=== PATIENT | male | born 1960 | race African-American/Black ===

== ENCOUNTER 2020-09-17 17:53 | Inpatient (IN) | payer OTHER ==
[2020-09-17 23:17] VITALS: BMI 23.8
[2020-09-18] MEDS ORDERED: NICOTINE POLACRILEX 2 MG GUM BUC PRN (00:39)
[2020-09-18] MEDS ORDERED: ONDANSETRON *ODT* 4 MG TABLET SL PRN (00:39)
[2020-09-18] MEDS ORDERED: MAGNESIUM HYDROX 2400MG/30ML ORAL SUSPENSION 30 ML CUP PO PRN (00:39)
[2020-09-18] MEDS ORDERED: NALOXONE (NARCAN) HCL 4 MG/0.1 ML SPRAY NS PRN (00:39)
[2020-09-18] MEDS ORDERED: IBUPROFEN 400 MG TABLET (FP) PO PRN (00:39)
[2020-09-18] MEDS ORDERED: methaDONE HCL 10 MG TABLET (FOR DETOX USE ONLY) PO ONE (00:39)
[2020-09-18] MEDS ORDERED: METHOCARBAMOL 500 MG TABLET PO PRN (00:39)
[2020-09-18] MEDS ORDERED: MENTHOL/PHENOL 1 EACH UD MM PRN (00:39)
[2020-09-18] MEDS ORDERED: MAGNESIUM CITRATE 300 ML BOTTLE PO PRN (00:39)
[2020-09-18] MEDS ORDERED: ACETAMINOPHEN 325 MG TABLET (FP) PO PRN ×2 (00:39)
[2020-09-18] MEDS ORDERED: MAG HYDROX/AL HYDROX/SIMETH 30 ML UNIT-DOSE CUP PO PRN (00:39)
[2020-09-18] MEDS ORDERED: BISMUTH SUBSALICYLATE 524 MG/30 ML PO PRN (00:39)
[2020-09-18] MEDS: hydrOXYzine PAMOATE 25 MG CAPSULE (FP) PO SCH ×5 (06:17→22:54)
[2020-09-18] MEDS: PRENATAL VITAMINS W/ FOLIC ACID TABLET (FP) PO SCH (10:36)
[2020-09-18] MEDS: amLODIPine BESYLATE 10 MG TABLET (FP) PO SCH (10:36)
[2020-09-18] MEDS: cloNIDine HCL 0.1 MG TABLET PO PRN ×2 (10:38→22:53)
[2020-09-18] MEDS: NICOTINE 14 MG/24 HOURS TOPICAL PATCH TD SCH (10:39)
[2020-09-18 12:45] LABS: HEMATOCRIT 37.5 % (35.4-49); MCH 31.1 pg (25.7-33.7); MCHC 34.7 g/dl (32.0-35.9); MEAN CELL VOLUME 89.5 fl (80-96); MEAN PLT VOLUME 10.4 fl (7.5-11.1); PLATELET COUNT 182 K/MM3 (134-434); RBC 4.19 M/mm3 (4.00-5.60); RDW 14.5 % (11.9-15.9); WHITE BLOOD COUNT 6.2 K/mm3 (4.0-10.0)
[2020-09-18 12:59] LABS: BLOOD UREA NITROGEN 21.8 mg/dL (7-18); CALCIUM 9.1 mg/dL (8.5-10.1)
[2020-09-18 13:00] LABS: ALBUMIN 3.4 g/dl (3.4-5.0)
[2020-09-18 13:03] LABS: CREATININE 0.8 mg/dL (0.55-1.3); TOT PROT 6.2 g/dl (6.4-8.2)
[2020-09-18] MEDS ORDERED: MASKS NR ONE (16:41)
[2020-09-18] MEDS: MELATONIN 5 MG TABLETS PO SCH (22:54)
[2020-09-18] MEDS: THIAMINE HCL 100 MG TABLET (FP) PO SCH (22:54)
[2020-09-19] MEDS: hydrOXYzine PAMOATE 25 MG CAPSULE (FP) PO SCH ×5 (06:42→22:59)
[2020-09-19] MEDS ORDERED: methaDONE HCL 10 MG TABLET (FOR DETOX USE ONLY) ONE (09:47)
[2020-09-19] MEDS: PRENATAL VITAMINS W/ FOLIC ACID TABLET (FP) PO SCH (10:39)
[2020-09-19] MEDS: amLODIPine BESYLATE 10 MG TABLET (FP) PO SCH (10:39)
[2020-09-19] MEDS: NICOTINE 14 MG/24 HOURS TOPICAL PATCH TD SCH (10:42)
[2020-09-19] MEDS: cloNIDine HCL 0.1 MG TABLET PO PRN (14:00)
[2020-09-19] MEDS ORDERED: LISINOPRIL 10 MG TABLET PO ONE (14:25)
[2020-09-19] MEDS: LISINOPRIL 10 MG TABLET PO SCH (22:59)
[2020-09-19] MEDS: THIAMINE HCL 100 MG TABLET (FP) PO SCH (22:59)
[2020-09-19] MEDS: MELATONIN 5 MG TABLETS PO SCH (22:59)
[2020-09-20] MEDS: hydrOXYzine PAMOATE 25 MG CAPSULE (FP) PO SCH ×5 (06:45→22:57)
[2020-09-20] MEDS ORDERED: methaDONE HCL 10 MG TABLET (FOR DETOX USE ONLY) PO ONE (10:00)
[2020-09-20] MEDS: PRENATAL VITAMINS W/ FOLIC ACID TABLET (FP) PO SCH (10:17)
[2020-09-20] MEDS: NICOTINE 14 MG/24 HOURS TOPICAL PATCH TD SCH (10:17)
[2020-09-20] MEDS: amLODIPine BESYLATE 10 MG TABLET (FP) PO SCH (10:17)
[2020-09-20] MEDS: LISINOPRIL 10 MG TABLET PO SCH ×2 (10:18→22:57)
[2020-09-20] MEDS: THIAMINE HCL 100 MG TABLET (FP) PO SCH (22:57)
[2020-09-20] MEDS: MELATONIN 5 MG TABLETS PO SCH (22:57)
[2020-09-21] MEDS: hydrOXYzine PAMOATE 25 MG CAPSULE (FP) PO SCH ×5 (05:54→22:45)
[2020-09-21] MEDS ORDERED: methaDONE HCL 10 MG TABLET (FOR DETOX USE ONLY) ONE (09:49)
[2020-09-21] MEDS: amLODIPine BESYLATE 10 MG TABLET (FP) PO SCH (10:29)
[2020-09-21] MEDS: NICOTINE 14 MG/24 HOURS TOPICAL PATCH TD SCH (10:29)
[2020-09-21] MEDS: PRENATAL VITAMINS W/ FOLIC ACID TABLET (FP) PO SCH (10:29)
[2020-09-21] MEDS: LISINOPRIL 10 MG TABLET PO SCH ×2 (10:29→22:45)
[2020-09-21] MEDS: MELATONIN 5 MG TABLETS PO SCH (22:45)
[2020-09-21] MEDS: THIAMINE HCL 100 MG TABLET (FP) PO SCH (22:45)
[2020-09-22] MEDS: hydrOXYzine PAMOATE 25 MG CAPSULE (FP) PO SCH ×5 (05:59→22:57)
[2020-09-22] MEDS ORDERED: JANSSEN COVID-19 VAC,AD26/PF 0.5 ML IM ONE (09:00)
[2020-09-22] MEDS ORDERED: methaDONE HCL 10 MG TABLET (FOR DETOX USE ONLY) PO ONE (10:00)
[2020-09-22] MEDS: LISINOPRIL 10 MG TABLET PO SCH ×2 (10:04→22:57)
[2020-09-22] MEDS: NICOTINE 14 MG/24 HOURS TOPICAL PATCH TD SCH (10:04)
[2020-09-22] MEDS: amLODIPine BESYLATE 10 MG TABLET (FP) PO SCH (10:04)
[2020-09-22] MEDS: PRENATAL VITAMINS W/ FOLIC ACID TABLET (FP) PO SCH (10:05)
[2020-09-22] MEDS: THIAMINE HCL 100 MG TABLET (FP) PO SCH (22:57)
[2020-09-22] MEDS: MELATONIN 5 MG TABLETS PO SCH (22:57)
[2020-09-23] MEDS: hydrOXYzine PAMOATE 25 MG CAPSULE (FP) PO SCH (07:05)
[2020-09-23 09:21] VITALS: BP 151/101; PULSE 79; TEMP 98.4
[2020-09-23] MEDS: amLODIPine BESYLATE 10 MG TABLET (FP) PO SCH (09:52)
[2020-09-23] MEDS: LISINOPRIL 10 MG TABLET PO SCH (09:52)
== END 2020-09-23 08:51 | disposition home or self-care (01) | DRG 897 ==
LOC: YASAS 17:53 → Y6N 23:28
PROVIDERS: ADMIT Allergy & Immunology; ATTEND Allergy & Immunology
PROC: HZ2ZZZZ Detoxification Services for Substance Abuse Treatment (ICD-10-PCS; principal; 2020-09-17)
DX: F11.23 Opioid dependence with withdrawal (principal); F14.20 Cocaine dependence, uncomplicated; F10.230 Alcohol dependence with withdrawal, uncomplicated; F19.24 Other psychoactive substance dependence with psychoactive substance-induced mood disorder; I10 Essential (primary) hypertension
CPT/HCPCS: 0031A; 36415; 80053; 85027; 86780; 91303; 93005; 93010; C9803; J0735; U0003; U0005

== ENCOUNTER 2023-07-25 16:02 | Inpatient (IN) | payer OTHER ==
[2023-07-25 17:03] VITALS: BMI 22.7
[2023-07-25] MEDS ORDERED: ONDANSETRON *ODT* 4 MG TABLET SL PRN (20:23)
[2023-07-25] MEDS ORDERED: NICOTINE POLACRILEX 2 MG GUM BUC PRN (20:23)
[2023-07-25] MEDS ORDERED: ACETAMINOPHEN 325 MG TABLET (FP) PO PRN (20:23)
[2023-07-25] MEDS ORDERED: LOPERAMIDE HCL 2 MG CAPSULE PO PRN (20:23)
[2023-07-25] MEDS ORDERED: guaiFENesin 600 MG TABLET.ER (FP) PO PRN (20:23)
[2023-07-25] MEDS ORDERED: MAG HYDROX/AL HYDROX/SIMETH 30 ML UNIT-DOSE CUP PO PRN (20:23)
[2023-07-25] MEDS ORDERED: POLYETHYLENE GLYCOL (HEALTHYLAX) 3350 17 GM PACKET PO PRN (20:23)
[2023-07-25] MEDS ORDERED: IBUPROFEN 400 MG TABLET (FP) PO PRN (20:23)
[2023-07-25] MEDS ORDERED: NALOXONE HCL (KLOXXADO) 8 MG SPRAY NS PRN (20:23)
[2023-07-25] MEDS ORDERED: BISMUTH SUBSALICYLATE 524 MG/30 ML PO PRN (20:23)
[2023-07-25] MEDS ORDERED: MAGNESIUM HYDROX 2400MG/30ML ORAL SUSPENSION 30 ML CUP PO PRN (20:23)
[2023-07-25] MEDS ORDERED: BENZOCAINE/MENTHOL (CHLORASEPTIC ) LOZENGE MM PRN (20:23)
[2023-07-25] MEDS ORDERED: DICYCLOMINE HCL 10 MG CAPSULE PO PRN (20:23)
[2023-07-25] MEDS ORDERED: NALOXONE HCL 0.4 MG/ML VIAL IM PRN (20:23)
[2023-07-25] MEDS ORDERED: BENZONATATE 200 MG CAPSULE PO PRN (20:23)
[2023-07-25] MEDS ORDERED: IBUPROFEN 600 MG TABLET (FP) PO PRN (20:23)
[2023-07-25] MEDS: cloNIDine HCL 0.1 MG TABLET PO PRN (20:30)
[2023-07-25] MEDS ORDERED: cloNIDine HCL 0.1 MG TABLET ONE (20:32)
[2023-07-25] MEDS: methaDONE HCL 10 MG TABLET (FOR DETOX USE ONLY) PO ONE (20:58)
[2023-07-25] MEDS ORDERED: methaDONE HCL 10 MG TABLET (FOR DETOX USE ONLY) ONE (21:02)
[2023-07-25] MEDS: MELATONIN 5 MG TABLETS PO SCH (23:04)
[2023-07-25] MEDS: THIAMINE HCL 100 MG TABLET (FP) PO SCH (23:04)
[2023-07-26] MEDS: amLODIPine BESYLATE 10 MG TABLET (FP) PO SCH (10:40)
[2023-07-26] MEDS: LISINOPRIL 10 MG TABLET PO SCH (10:40)
[2023-07-26] MEDS: PRENATAL VITAMINS W/ FOLIC ACID TABLET (FP) PO SCH (10:40)
[2023-07-26] MEDS: NICOTINE 14 MG/24 HOURS TOPICAL PATCH TD SCH (10:40)
[2023-07-26 12:16] LABS: HEMATOCRIT 36.5 % (35.4-49); MCH 29.5 pg (25.7-33.7); MCHC 32.9 g/dl (32.0-35.9); MEAN CELL VOLUME 89.4 fl (80-96); MEAN PLT VOLUME 11.3 fl (7.5-11.1); PLATELET COUNT 158 10^3/uL (134-434); RBC 4.08 M/mm3 (4.00-5.60); RDW 15.6 % (11.9-15.9); WHITE BLOOD COUNT 6.1 K/mm3 (4.0-10.0)
[2023-07-26 12:17] LABS: CHLORIDE 108 mmol/L (98-107); POTASSIUM 4.2 mmol/L (3.5-5.1); SODIUM 142 mmol/L (136-145)
[2023-07-26 12:30] LABS: BLOOD UREA NITROGEN 16.5 mg/dL (7-18)
[2023-07-26 12:32] LABS: ANION GAP 6 mmol/L (4-13); CO2 28 mmol/L (21-32); GLUCOSE,RANDOM 100 mg/dL (74-106)
[2023-07-26 12:35] LABS: SGPT/ALT 24 U/L (13-61)
[2023-07-26 12:36] LABS: ALK PHOS 76 U/L (45-117); BILIRUBIN,TOTAL 0.4 mg/dL (0.2-1); TOT PROT 5.7 g/dl (6.4-8.2)
[2023-07-26 12:37] LABS: CREATININE 0.7 mg/dL (0.55-1.3)
[2023-07-26 12:38] LABS: SGOT/AST 14 U/L (15-37)
[2023-07-26] MEDS: METHOCARBAMOL 500 MG TABLET PO PRN (22:16)
[2023-07-27] MEDS: methaDONE HCL 10 MG TABLET (FOR DETOX USE ONLY) PO ONE (10:19)
[2023-07-28] MEDS: cloNIDine HCL 0.1 MG TABLET PO PRN (21:29)
[2023-07-28] MEDS: hydrOXYzine PAMOATE 25 MG CAPSULE (FP) PO PRN (22:23)
[2023-07-29] MEDS: methaDONE HCL 10 MG TABLET (FOR DETOX USE ONLY) PO ONE (09:47)
[2023-07-30 09:27] VITALS: BP 132/80; PULSE 62; RESP 18; TEMP 97.8
== END 2023-07-30 11:05 | disposition other institution (70) | DRG 773 ==
LOC: YASAS 16:02 → Y6N 21:28
PROVIDERS: ADMIT Allergy & Immunology; ATTEND Surgery
PROC: HZ2ZZZZ Detoxification Services for Substance Abuse Treatment (ICD-10-PCS; principal; 2023-07-25)
DX: F11.23 Opioid dependence with withdrawal (principal); F17.210 Nicotine dependence, cigarettes, uncomplicated; I10 Essential (primary) hypertension; Z28.310 Unvaccinated for COVID-19; Z28.9 Immunization not carried out for unspecified reason; Z56.0 Unemployment, unspecified; Z59.00 Homelessness unspecified
CPT/HCPCS: 36415; 80053; 80305; 80307; 85027; 86780; 93005; 93010